=== PATIENT | female | born 1980 | race American Indian/Alaskan Native ===

== ENCOUNTER 2019-06-23 03:27 | Emergency (ER) | payer MEDICAID ==
[2019-06-23 03:39] VITALS: BP 155/84
[2019-06-23] MEDS ORDERED: FAMOTIDINE 20 MG/2 ML INJ IV ONE (04:05)
[2019-06-23] MEDS ORDERED: methylPREDNISolone Sod Succinate 125 MG/2 ML INJ IV ONE (04:05)
--- NOTE | 2019-06-23 04:07 | Event Note ---
Date: 06/23/19 Medical screening examination note: 38-year-old female, history of morbid obesity, presenting to the ER with a complaint of subjective sensation of tongue swelling, feeling lightheaded and generally weak. She denies physical pain. This is her third emergency room visit in the past 24 hours. Apparently she was seen at another facility, and was found to have low potassium, and was given Reglan for nausea. On initial examination, the patient is afebrile with reassuring vital signs, speaking in full sentences, with no stridor or dysphonia, and no obvious extraoral or intraoral swelling. However, the patient feels like her tongue is subjectively swollen. She states she does not take prescription medications. As far she knows, there is no family history of hereditary angioedema. She is awake, alert, oriented, clinically sober and exhibits decision-making capacity. We have recommended observation, EKG, placement on a front desk monitor, and screening laboratory studies. Pepcid steroids will be ordered, we will withhold Benadryl at this time. Vital Signs 06/23/19 03:32 Temperature 97.9 F Pulse Rate 74 Respiratory 18 Rate Blood Pressure 155/84 O2 Sat by Pulse 99 Oximetry
[2019-06-23 04:39] LABS: Hematocrit 35.3 % (30.3-42.9); Hemoglobin 11.7 gm/dl (10.1-14.3); Mean Corpuscular HGB Conc 33 % (30-34); Mean Corpuscular Volume 77 fl (79-97); Platelet Count 245 K/mm3 (140-440); Red Blood Count 4.57 M/mm3 (3.65-5.03); Red Cell Distribution Width 14.9 % (13.2-15.2)
[2019-06-23 04:43] LABS: Alanine Aminotransferase 13 units/L (7-56); Albumin 3.8 g/dL (3.9-5); BUN/Creatinine Ratio 8; Blood Urea Nitrogen 5 mg/dL (7-17); Calcium 8.5 mg/dL (8.4-10.2); Hemolysis Index 1
== END 2019-06-23 04:47 ==
LOC: ED 03:27
DX: R42 Dizziness and giddiness (principal); Z53.21 Procedure and treatment not carried out due to patient leaving prior to being seen by health care provider
CPT/HCPCS: 36415; 80053; 82550; 83735; 84702; 85027; 93005; 93010; 96374; 96375; J2930